=== PATIENT | male | born 2000 | race African-American/Black ===

== ENCOUNTER 2018-09-25 23:47 | Emergency (ER) | payer BC ==
[2018-09-26 00:11] VITALS: BMI 27.8
[2018-09-26] MEDS ORDERED: SODIUM CHLORIDE 0.9% 500 ML INFUS.BAG IV ONE (01:25)
[2018-09-26] MEDS ORDERED: ACETAMINOPHEN 1000 MG/100 ML VIAL (NON FORMULARY) IVPB ONE (01:25)
--- NOTE | 2018-09-26 01:25 | PDOC ---
History of Present Illness - General Chief Complaint: Sore Throat Stated Complaint: THROAT INFECTION Time Seen by Provider: 09/26/18 00:52 History Source: Patient Exam Limitations: No Limitations - History of Present Illness Initial Comments: 09/26/18 01:21 Patient is a 18-year-old male with no past medical history here with complaint of sore throat 1 week. States his pain is 10/10 sharp stabbing in the throat especially with swallowing. He has had fever 2 days ago was 101.3, tonight was subjective but took Motrin at 10:30 PM. Per mother (+) sick contact, patient was around her who had the flu. States 4 days ago went to urgent care and was swabbed for the flu which was negative, and strep was negative, however was given Zithromax, Motrin, and chlorhexidine but has had no relief of symptoms. States throat has worsened and now has exudates. No flu shot this season. PMD: Dr. Aranda PMHX: neg PSOCHX: neg etoh, durg, cig ALL: NKDA GENERAL/CONSTITUTIONAL: [No fever or chills. No weakness. No weight change.] HEAD, EYES, EARS, NOSE AND THROAT: [No change in vision. No ear pain or discharge. (+) sore throat.] CARDIOVASCULAR: [No chest pain or shortness of breath.] RESPIRATORY: [No cough, wheezing, or hemoptysis.] GASTROINTESTINAL: [No nausea, vomiting, diarrhea or constipation. No rectal bleeding.] GENITOURINARY: [No dysuria, frequency, or change in urination.] MUSCULOSKELETAL: [No joint or muscle swelling or pain. No neck or back pain.] SKIN AND BREASTS: [No rash or easy bruising.] NEUROLOGIC: [No headache, vertigo, loss of consciousness, or loss of sensation.] PSYCHIATRIC: [No depression or anxiety.] ENDOCRINE: [No increased thirst. No abnormal weight change.] HEMATOLOGIC/LYMPHATIC: [No anemia, easy bleeding, or history of blood clots.] ALLERGIC/IMMUNOLOGIC: [No hives or skin allergy. No latex allergy.] GENERAL: [The patient is awake, alert, and fully oriented, in no acute distress. ] HEAD: [Normal with no signs of trauma.] EYES: [Pupils equal, round and reactive to light, extraocular movements intact, sclera anicteric, conjunctiva clear.] ENT: [Ears normal, nares patent, oropharynx (+) erythema, (+) exudates. Moist mucous membranes.] NECK: [Normal range of motion, supple without lymphadenopathy, JVD, or masses.] LUNGS: [Breath sounds equal, clear to auscultation bilaterally. No wheezes, and no crackles.] HEART: [Regular rate and rhythm, normal S1 and S2 without murmur, rub.] ABDOMEN: [Soft, nontender, normoactive bowel sounds. No guarding, no rebound. No masses.] EXTREMITIES: [Normal range of motion, no edema. No clubbing or cyanosis. No cords, erythema, or tenderness.] NEUROLOGICAL: [Cranial nerves II through XII grossly intact. Normal speech, normal gait.] PSYCH: [Normal mood, normal affect.] SKIN: [Warm, Dry, normal turgor, no rashes or lesions noted.] Past History - Past Medical History Allergies/Adverse Reactions: Allergies Allergy/AdvReac Type Severity Reaction Status Date / Time No Known Allergies Allergy Verified 09/26/18 00:07 Home Medications: Ambulatory Orders Naproxen [Naprosyn -] 500 mg PO BID PRN #13 tablet 07/10/14 Clindamycin [Cleocin -] 300 mg PO TID #21 capsule 09/26/18 Oxycodone HCl/Acetaminophen [Percocet 5-325 mg Tablet] 1 tab PO Q6H #15 tablet MDD 6 09/26/18 COPD: No Other medical history: Pt denies - Immunization History Immunization Up to Date: Yes - Suicide/Smoking/Psychosocial Hx Smoking Status: No Smoking History: Never smoked Have you smoked in the past 12 months: No Number of Cigarettes Smoked Daily: 0 Information on smoking cessation initiated: No Hx Alcohol Use: No Drug/Substance Use Hx: No Substance Use Type: None *Physical Exam - Vital Signs Last Vital Signs Temp Pulse Resp BP Pulse Ox 99.6 F 120 H 20 111/60 96 09/26/18 00:07 09/26/18 00:07 09/26/18 00:07 09/26/18 00:07 09/26/18 00:07 Moderate Sedation - Procedure Monitoring Vital Signs: Procedure Monitoring Vital Signs Temperature 99.6 F 09/26/18 00:07 Pulse Rate 120 H 09/26/18 00:07 Respiratory Rate 20 09/26/18 00:07 Blood Pressure 111/60 09/26/18 00:07 O2 Sat by Pulse Oximetry (%) 96 09/26/18 00:07 ED Treatment Course - LABORATORY CBC & Chemistry Diagram: 09/26/18 02:40 09/26/18 02:40 Medical Decision Making - Medical Decision Making 09/26/18 01:21 Patient is a 18-year-old male with no past medical history here with complaint of sore throat 1 week. States his pain is 10/10 sharp stabbing in the throat especially with swallowing. Has not been eating or drinking due to the pain. He has had fever 2 days ago was 101.3, tonight was subjective but took Motrin at 10:30 PM. Per mother (+) sick contact, patient was around her who had the flu. States 4 days ago went to urgent care and was swabbed for the flu which was negative, and strep was negative, however was given Zithromax, Motrin , and chlorhexidine but has had no relief of symptoms. States throat has worsened and now has exudates. No flu shot this season. Noted to be tachycardic, currently no fever but could be dehydrated rapid strep, labs, IVF Clindamycin 09/26/18 04:10 Laboratory Tests 09/26/18 09/26/18 09/26/18 01:35 02:40 02:40 WBC 7.8 Hgb 15.8 Hct 45.7 Plt Count 195 Monocytes % 20.3 H Sodium 135 L Potassium 4.0 Chloride 96 L Carbon Dioxide 29 Anion Gap 10 BUN 17 Creatinine 1.4 H Random Glucose 91 Calcium 8.9 Total Bilirubin 0.8 AST 145 H ALT 291 H Alkaline Phosphatase 82 Group A Strep Rapid Negative Selected Entries 09/26/18 04:08 Temperature 98.5 F Pulse Rate [ 94 H Apical] Respiratory 18 Rate Blood Pressure 129/71 [Left] O2 Sat by Pulse 99 Oximetry (%) Patient is improved and requesting to go home I discussed the physical exam findings, ancillary test results and final diagnoses with the patient. I answered all of the patient's questions. The patient was satisfied with the care received and felt comfortable with the discharge plan and treatment plan. The Patient agrees to follow up with the primary care physician within 24-72 hours. *DC/Admit/Observation/Transfer Diagnosis at time of Disposition: Pharyngitis Qualifiers: Pharyngitis/tonsillitis etiology: unspecified etiology Qualified Code(s): J02.9 - Acute pharyngitis, unspecified - Discharge Dispostion Disposition: HOME Condition at time of disposition: Stable - Referrals Referrals: Andrew Zendejas MD [Primary Care Provider] - - Patient Instructions Printed Discharge Instructions: DI for Pharyngitis/Tonsillopharyngitis -- Adult Additional Instructions: Your Discharge Instructions: You must call primary care physician within 24 hours to arrange follow-up. Return to the Emergency Department with any new, persistent or worsening symptoms, for fever, chills, SOB, dizziness or any other concerning changes that may occur. - Post Discharge Activity Forms/Work/School Notes: Back to Work
[2018-09-26] MEDS ORDERED: DEXAMETHASONE SOD PHOSPHATE 10 MG/1 ML VIAL IVPUSH ONE (01:26)
[2018-09-26] MEDS ORDERED: DEXAMETHASONE SOD PHOSPHATE 10 MG/1 ML VIAL ONE (02:17)
[2018-09-26] MEDS ORDERED: ACETAMINOPHEN INJECTION 100 ML IVPB ONE (02:17)
[2018-09-26] MEDS ORDERED: CLINDAMYCIN 600MG PREMIX IVPB 600 MG/50 ML BAG IVPB ONE ×2 (02:20→02:56)
[2018-09-26 02:51] LABS: BASO % 0.6 % (0-2.0); EOS % 0.7 % (0-4.5); HEMATOCRIT 45.7 % (35.4-49); HEMOGLOBIN 15.8 GM/dL (11.7-16.9); LYMPH % 31.5 % (8-40); MCH 31.8 pg (25.7-33.7); MCHC 34.7 g/dl (32.0-35.9); MEAN CELL VOLUME 91.6 fl (80-96); MEAN PLT VOLUME 10.4 fl (7.5-11.1); MONO % 20.3 % (3.8-10.2); NEUT % 46.9 % (42.8-82.8); PLATELET COUNT 195 K/MM3 (134-434); RBC 4.99 M/mm3 (4.00-5.60); RDW 13.6 % (11.9-15.9); WHITE BLOOD COUNT 7.8 K/mm3 (4.0-10.0)
[2018-09-26] MEDS ORDERED: ONDANSETRON 4 MG/2 ML VIAL IVPB ONE (02:57)
[2018-09-26] MEDS ORDERED: ONDANSETRON 4 MG/2 ML VIAL ONE (02:57)
[2018-09-26 03:19] LABS: ALK PHOS 82 U/L (45-117); ANION GAP 10 MMOL/L (8-16); BILIRUBIN,TOTAL 0.8 mg/dL (0.2-1); BLOOD UREA NITROGEN 17 mg/dL (7-18); CALCIUM 8.9 mg/dL (8.5-10.1); CHLORIDE 96 mmol/L (98-107); CO2 29 mmol/L (21-32); CREATININE 1.4 mg/dL (0.55-1.3); GLUCOSE,RANDOM 91 mg/dL (74-106); SGOT/AST 145 U/L (15-37); SGPT/ALT 291 U/L (13-61); SODIUM 135 mmol/L (136-145); TOT PROT 8.1 g/dl (6.4-8.2)
[2018-09-26 04:09] VITALS: BP 129/71; PULSE 94; TEMP 98.5
[2018-09-26 07:39] LABS: ANISOCYTOSIS 2+; MACROCYTOSIS 0; PLATELET ESTIMATE NORMAL
== END 2018-09-26 04:30 | disposition home or self-care (01) ==
LOC: JER 23:47
PROC: 3E03329 Introduction of Other Anti-infective into Peripheral Vein, Percutaneous Approach (ICD-10-PCS; principal; 2018-09-25)
PROC: 3E033GC Introduction of Other Therapeutic Substance into Peripheral Vein, Percutaneous Approach (ICD-10-PCS; 2018-09-25)
PROC: 3E033NZ Introduction of Analgesics, Hypnotics, Sedatives into Peripheral Vein, Percutaneous Approach (ICD-10-PCS; 2018-09-25)
PROC: 3E0333Z Introduction of Anti-inflammatory into Peripheral Vein, Percutaneous Approach (ICD-10-PCS; 2018-09-25)
DX: J02.9 Acute pharyngitis, unspecified (principal)
CPT/HCPCS: 36415; 80053; 85025; 87070; 87880; 99281-25; J0131; J1100

== ENCOUNTER 2022-01-26 23:50 | Emergency (ER) | payer BC ==
[2022-01-26 23:56] VITALS: BP 114/76; PULSE 104; TEMP 101.2; BMI 25.1
[2022-01-27] MEDS ORDERED: ACETAMINOPHEN 500 MG TABLET (FP) ONE (00:05)
[2022-01-27] MEDS ORDERED: ACETAMINOPHEN 500 MG TABLET (FP) PO ONE (00:13)
== END 2022-01-27 00:24 | disposition home or self-care (01) ==
LOC: FER 23:50
DX: J02.9 Acute pharyngitis, unspecified (principal)
CPT/HCPCS: 87651; 99283-25

== ENCOUNTER 2023-04-22 00:10 | Emergency (ER) | payer BC ==
[2023-04-22 00:18] VITALS: RESP 16; BMI 25.2
[2023-04-22 01:05] VITALS: BP 135/73; PULSE 66; TEMP 97.9
== END 2023-04-22 01:07 | disposition home or self-care (01) ==
LOC: FER 00:10
DX: S60.511A Abrasion of right hand, initial encounter (principal); S61.501A Unspecified open wound of right wrist, initial encounter; W25.XXXA Contact with sharp glass, initial encounter
CPT/HCPCS: 99282-25